=== PATIENT | male | born 1970 | race Caucasian/White ===

== ENCOUNTER 2017-12-19 12:47 | Emergency (ER) | payer MEDICARE, OTHER ==
[~2017-12-19] VITALS: Ht 188 cm; Wt 108.9 kg
[2017-12-19 13:16] VITALS: BP 125/77
[2017-12-19] MEDS ORDERED: BACITRACIN TOP OINT 1 UD PKG TOP ONE (15:21)
== END 2017-12-19 15:36 | disposition home or self-care (01) ==
LOC: ER 12:47
DX: S00.05XA Superficial foreign body of scalp, initial encounter (principal); W45.8XXA Other foreign body or object entering through skin, initial encounter; Y93.89 Activity, other specified; Y99.8 Other external cause status; Y92.89 Other specified places as the place of occurrence of the external cause